=== PATIENT | female | born 1995 | race Caucasian/White ===

== ENCOUNTER 2016-04-26 12:37 | Emergency (ER) | payer SELFPAY ==
[2016-04-26] MEDS: 0.9 % SODIUM CHLORIDE 1,000 ML IV ONE (13:15)
[2016-04-26] MEDS: ONDANSETRON HCL/PF 4 MG/ 2ML VIAL IVP ONE (13:17)
[2016-04-26 13:26] LABS: BASOPHILS % 0.2 (0.0-1.5); EOSINOPHILS % 0.4 % (0.0-6.8); LYMPHOCYTES # 1.8 # k/uL (0.6-4.0); MEAN CORPUSCULAR HEMOGLOBIN 29.5 pg (28.0-34.0); MONOCYTES # 0.4 # k/uL (0.0-0.9); MONOCYTES % 4.1 % (0.0-11.0); NEUTROPHILS # 8.1 # k/uL (1.4-7.7)
--- NOTE | 2016-04-26 13:39 | ED Physician Documentation ---
Nausea/Vomiting/Diarrhea - HISTORIAN Historian: patient - HPI Stated Complaint: N/V Chief Complaint: Nausea,Vomiting,Diarrhea Onset: days ago (Sunday) Duration: waxing, waning Last known Well Code/Unknown Code: Unknown Further Comments: yes (21 year old female patient presents with complaints of nausea and headache. Patient states she woke up Sunday with a hangover after drinking vodka on Sunday night. Patient states she has had nausea off and on since Sunday, states she has vomited each day. Denies diarrhea or fever. Concerned she may be .) - Associated Symptoms Vomiting: frequent Abdominal Pain: LLQ - ROS CONST: none CVS/RESP: denies: chest pain, shortness of breath, cough, dry cough, non- productive cough, productive cough, bloody cough, other GI/: none EYES/ENT: none MS/SKIN/LYMPH: denies: joint pain, leg swelling, rash, swollen glands, ankle swelling, other NEURO/PSYCH: none - PAST HX Past History: other (Rheumatic fever at age 9, viral meningitis. ) Surgeries/Procedures: none Allergies/Adverse Reactions: Allergies Allergy/AdvReac Type Severity Reaction Status Date / Time No Known Allergies Allergy Verified 04/26/16 12:55 Home Medications: Ambulatory Orders Medication Instructions Recorded Promethazine HCl [Phenergan] 12.5 mg PO Q6H PRN #30 tablet 04/26/16 - SOCIAL HX Smoking History: cigarettes - FAMILY HX Family History: none - VITAL SIGNS Vital Signs: Vital Signs Temp Pulse Resp BP Pulse Ox 99.3 F 91 H 16 115/64 99 04/26/16 12:47 04/26/16 14:55 04/26/16 14:55 04/26/16 14:55 04/26/16 14:55 - REVIEWED ASSESSMENTS Nursing Assessment Reviewed: Yes Vitals Reviewed: Yes ED Results Lab/Radiology - Lab Results Lab Results: Lab Results 04/26/16 04/26/16 13:20 13:20 WBC 10.40 K/ul K/ul (4.00-12.00) RBC 4.81 M/ul M/ul (3.90-5.20) Hgb 14.2 g/dL g/dL (12.0-16.0) Hct 41.5 % % (34.5-46.5) MCV 86.4 fl fl (80.0-100.0) MCH 29.5 pg pg (28.0-34.0) MCHC 34.2 g/dL g/dL (30.0-36.0) RDW 13.2 % % (11.3-14.3) Plt Count 219 K/mm3 K/mm3 (130-400) Neut % (Auto) 77.5 % % (39.0-79.0) Lymph % (Auto) 17.2 % % (16.0-50.0) [place] % (Auto) 4.1 % % (0.0-11.0) Eos % (Auto) 0.4 % % (0.0-6.8) Baso % (Auto) 0.2 (0.0-1.5) Neut # 8.1 # k/uL H # k/uL (1.4-7.7) Lymph # 1.8 # k/uL # k/uL (0.6-4.0) [place] # 0.4 # k/uL # k/uL (0.0-0.9) Eos # 0.0 # k/uL # k/uL (0.0-0.6) Baso # 0.0 # k/uL # k/uL (0.0-0.5) Reactive Lymphs % 0.6 % % (0.0-5.0) Reactive Lymphs # 0.1 # k/uL # k/uL (0.0-0.8) Sodium 143 mmol/L mmol/L (136-145) Potassium 3.1 mmol/L L mmol/L (3.5-5.0) Chloride 98 mmol/L mmol/L (98-110) Carbon Dioxide 29 mmol/L mmol/L (20-32) BUN 12 mg/dL mg/dL (10-26) Creatinine 0.9 mg/dL mg/dL (0.4-1.5) Estimated Creat Clear 198 Est GFR ( Amer) > 60 (60 - ) Est GFR (Non-Af Amer) > 60 (60 - ) Glucose 98 mg/dL mg/dL (70-99) Calcium 10.2 mg/dL mg/dL (8.5-10.5) Total Bilirubin 2.2 mg/dL H mg/dL (0.2-1.2) AST 27 U/L U/L (0-41) ALT 33 U/L U/L (0-45) Alkaline Phosphatase 71 U/L U/L (46-116) Total Protein 8.4 g/dL g/dL (6.0-8.5) Albumin 4.8 g/dL g/dL (3.0-5.5) - Orders Orders: ED Orders Category Date Time Status Place Saline Lock/IV NOW Care 04/26/16 12:51 Active CBC/PLATELET/DIFF Stat Lab 04/26/16 13:20 Completed CMP Stat Lab 04/26/16 13:20 Completed UA W/MICRO IF INDICATED Stat Lab 04/26/16 12:51 Ordered URINE HCG Stat Lab 04/26/16 Ordered 0.9 % Sodium Chloride [Normal Saline] 1,000 ml Med 04/26/16 12:51 Discontinued IV NOW Ondansetron HCl/Pf [Zofran 4 mg/2 ml] Med 04/26/16 12:52 Discontinued 4 mg IVP NOW ONE Potassium Chloride [Klor-Con M20] Med 04/26/16 14:05 Discontinued 20 meq PO NOW ONE Nausea Physical Exam - EXAM General Appearance: mild distress EENT: eye inspection normal, ENT inspection normal, pharynx normal, no signs of dehydration, KAYLEIGH, no nystagmus, TM's nml Respiratory: no resp distress, chest non-tender, breath sounds normal CVS: reg rate & rhythm, heart sounds normal, equal pulses, no murmur, no gallop , PMI nml, no JVD, no friction rub, 24 Abdomen: no organomegaly, tenderness (mild with palpation) Skin: normal color, warm/dry, NR, INT, PAL, DR Extremities: non-tender, normal range of motion, no evidence of injury, no edema , J, [employer]IDE [employer] Neuro/Psych: oriented X3, CN's nml as tested, motor nml, sensation nml, mood/ affect nml Discharge Clincal Impression: Nausea & vomiting Qualifiers: Vomiting type: unspecified Vomiting Intractability: intractable Qualified Code( s): R11.2 - Nausea with vomiting, unspecified Prescriptions: Promethazine HCl [Phenergan] 12.5 mg PO Q6H PRN #30 tablet PRN Reason: Nausea / Vomiting Referrals: Parvin Conway MD [Primary Care Provider] - 2 Days Home Medications: Ambulatory Orders Promethazine HCl [Phenergan] 12.5 mg PO Q6H PRN #30 tablet 04/26/16 Condition: Good Disposition: 01 HOME, SELF-CARE Decision to Admit: NO Decision Time: 14:40
[2016-04-26 13:45] LABS: eGFR (African) > 60; eGFR (Non-African) > 60
[2016-04-26] MEDS: POTASSIUM CHLORIDE 20 MEQ TABLET.ER PO ONE (14:20)
[2016-04-26 15:13] VITALS: BP 115/64
== END 2016-04-26 14:44 | disposition home or self-care (01) ==
LOC: ED 12:37
DX: R11.2 Nausea with vomiting, unspecified (principal)
CPT/HCPCS: 80053; 85025; A9270; J2405; J7030; 81025; 96374; 99282; 99283; S1016

== ENCOUNTER 2016-04-27 09:04 | Emergency (ER) | payer SELFPAY ==
[2016-04-27 09:42] VITALS: BP 125/79
[2016-04-27 10:06] LABS: BASOPHILS % 0.2 (0.0-1.5); EOSINOPHILS % 0.6 % (0.0-6.8); LYMPHOCYTES # 1.5 # k/uL (0.6-4.0); MEAN CORPUSCULAR HEMOGLOBIN 30.3 pg (28.0-34.0); MONOCYTES # 0.4 # k/uL (0.0-0.9); MONOCYTES % 4.7 % (0.0-11.0); NEUTROPHILS # 6.7 # k/uL (1.4-7.7)
[2016-04-27 10:20] LABS: AMORPHOUS SEDIMENT,UR MODERATE (NEGATIVE); APPEARANCE,URINE Clear (CLEAR); COLOR,URINE Yellow (YELLOW); OCCULT BLOOD,URINE 3+ (NEGATIVE)
[2016-04-27 10:22] LABS: eGFR (African) > 60; eGFR (Non-African) > 60
--- NOTE | 2016-04-27 11:58 | ED Physician Documentation ---
Abdominal Pain - HISTORIAN Historian: patient, parent - HPI Stated Complaint: L sided abdominal pain Chief Complaint: Abdominal Pain Additonal Information: luq abd pain rad around to back Onset: days ago (5-6) Duration: constant, waxing, waning, persistent Timing: worse Context: denies: out of country travel, bad food, recent trauma Severity: moderate Quality: pain, cramping Associated Symptoms: nausea. denies: vomiting, diarrhea, bloody stools, loss of appetite Exacerbated by: movements Further Comments: yes (some supra pubic pain-dark urine) - ROS CONST: no problems GI/: dark urine. denies: problems urinating CVS/RESP: none EYES/ENT: none MS/SKIN/LYMPH: none NEURO/PSYCH: none - SOCIAL HX Smoking History: other (rheumatic fever as child viral meningitis) Alcohol Use: none Drug Use: none - FAMILY HX Family History: no significant history - PAST HX Past History: other (rh fever as child viral meningitis) Ischemic Bowel Risk Factors: none Other History: none Surgeries/Procedures: none Immunizations: UTD Home Medications: Ambulatory Orders Medication Instructions Recorded Promethazine HCl [Phenergan] 12.5 mg PO Q6H PRN #30 tablet 04/26/16 Ciprofloxacin HCl [Cipro] 500 mg PO BID #14 tablet 04/27/16 Allergies/Adverse Reactions: Allergies Allergy/AdvReac Type Severity Reaction Status Date / Time No Known Allergies Allergy Verified 04/26/16 12:55 - VITAL SIGNS Vital Signs: Vital Signs Temp Pulse Resp BP Pulse Ox 98.1 F 92 H 16 125/79 99 04/27/16 09:12 04/27/16 09:12 04/27/16 09:12 04/27/16 09:12 04/27/16 09:12 - REVIEWED ASSESSMENTS Nursing Assessment Reviewed: Yes Vitals Reviewed: Yes ED Results Lab/Radiology - Lab Results Lab Results: Lab Results 04/27/16 04/27/16 04/27/16 09:50 09:50 09:50 WBC RBC Hgb Hct MCV MCH MCHC RDW Plt Count Neut % (Auto) Lymph % (Auto) [place] % (Auto) Eos % (Auto) Baso % (Auto) Neut # Lymph # [place] # Eos # Baso # Reactive Lymphs % Reactive Lymphs # Sodium 137 mmol/L mmol/L (136-145) Potassium 3.5 mmol/L mmol/L (3.5-5.0) Chloride 101 mmol/L mmol/L (98-110) Carbon Dioxide 30 mmol/L mmol/L (20-32) BUN 10 mg/dL mg/dL (10-26) Creatinine 0.9 mg/dL mg/dL (0.4-1.5) Estimated Creat Clear 194 Est GFR ( Amer) > 60 (60 - ) Est GFR (Non-Af Amer) > 60 (60 - ) Glucose 101 mg/dL H mg/dL (70-99) Calcium 9.9 mg/dL mg/dL (8.5-10.5) Total Bilirubin 3.0 mg/dL H mg/dL (0.2-1.2) AST 28 U/L U/L (0-41) ALT 34 U/L U/L (0-45) Alkaline Phosphatase 67 U/L U/L (46-116) Total Protein 8.1 g/dL g/dL (6.0-8.5) Albumin 4.6 g/dL g/dL (3.0-5.5) Amylase 20 U/L U/L (20-104) Serum HCG, Qual Negative (NEGATIVE) Urine Color Yellow (YELLOW) Urine Appearance Clear (CLEAR) Urine pH 6.0 (5.0 - 8.0) Ur Specific [place] >=1.030 H (1.010-1.030) Urine Protein 1+ mg/dL H mg/dL (NEGATIVE) Urine Ketones 2+ mg/dL H mg/dL (NEGATIVE) Urine Occult Blood 3+ H (NEGATIVE) Urine Nitrite Positive (NEGATIVE) Urine Bilirubin Negative (NEGATIVE) Urine Urobilinogen 1.0 Eu Eu (0.2-1.0) Ur Leukocyte Esterase 1+ H (NEGATIVE) Urine RBC 2-5 H (0-2 HPF) Urine WBC 5-10 H (0-5 HPF) Ur Squamous Epith Cells Moderate H (NEG-FEW) Amorphous Sediment Moderate H (NEGATIVE) Urine Bacteria Many H (NEGATIVE) Urine Glucose Negative mg/dL mg/dL (NEGATIVE) 04/27/16 09:50 WBC 8.80 K/ul K/ul (4.00-12.00) RBC 4.65 M/ul M/ul (3.90-5.20) Hgb 14.1 g/dL g/dL (12.0-16.0) Hct 40.9 % % (34.5-46.5) MCV 88.0 fl fl (80.0-100.0) MCH 30.3 pg pg (28.0-34.0) MCHC 34.4 g/dL g/dL (30.0-36.0) RDW 13.1 % % (11.3-14.3) Plt Count 205 K/mm3 K/mm3 (130-400) Neut % (Auto) 76.3 % % (39.0-79.0) Lymph % (Auto) 17.3 % % (16.0-50.0) [place] % (Auto) 4.7 % % (0.0-11.0) Eos % (Auto) 0.6 % % (0.0-6.8) Baso % (Auto) 0.2 (0.0-1.5) Neut # 6.7 # k/uL # k/uL (1.4-7.7) Lymph # 1.5 # k/uL # k/uL (0.6-4.0) [place] # 0.4 # k/uL # k/uL (0.0-0.9) Eos # 0.1 # k/uL # k/uL (0.0-0.6) Baso # 0.0 # k/uL # k/uL (0.0-0.5) Reactive Lymphs % 0.8 % % (0.0-5.0) Reactive Lymphs # 0.1 # k/uL # k/uL (0.0-0.8) Sodium Potassium Chloride Carbon Dioxide BUN Creatinine Estimated Creat Clear Est GFR ( Amer) Est GFR (Non-Af Amer) Glucose Calcium Total Bilirubin AST ALT Alkaline Phosphatase Total Protein Albumin Amylase Serum HCG, Qual Urine Color Urine Appearance Urine pH Ur Specific [place] Urine Protein Urine Ketones Urine Occult Blood Urine Nitrite Urine Bilirubin Urine Urobilinogen Ur Leukocyte Esterase Urine RBC Urine WBC Ur Squamous Epith Cells Amorphous Sediment Urine Bacteria Urine Glucose - Orders Orders: ED Orders Category Date Time Status ABD SERIES PA CHEST [RAD] Stat Exams 04/27/16 Taken AMYLASE Routine Lab 04/27/16 09:50 Completed CBC/PLATELET/DIFF Routine Lab 04/27/16 09:50 Completed CMP Routine Lab 04/27/16 09:50 Completed SERUM HCG Routine Lab 04/27/16 09:50 Completed URINALYSIS Routine Lab 04/27/16 09:50 Completed URINE CULTURE Routine Lab 04/27/16 09:50 Received Abdominal Pain Physical Exam - Physical Exam General Appearance: mild distress EENT: eye inspection normal NECK: normal inspection, thyroid normal RESPIRATORY: no resp distress, chest non-tender, breath sounds normal CVS: reg rate & rhythm, heart sounds normal ABDOMEN: soft, tenderness (luq and w/ sig pos renal lpunch test lt-mild supra pubic tenderness) BACK: normal inspection SKIN: warm/dry, normal color. No: cyanosis, diaphoresis, jaundice EXTREMITIES: non-tender, normal range of motion NEURO: oriented X3, CN's nml as tested, motor nml, sensation nml, mood/affect nml Vital Signs: Vital Signs Temp Pulse Resp BP Pulse Ox 98.1 F 92 H 16 125/79 99 04/27/16 09:12 04/27/16 09:12 04/27/16 09:12 04/27/16 09:12 04/27/16 09:12 Discharge Clincal Impression: Acute pyelonephritis Prescriptions: Ciprofloxacin HCl [Cipro] 500 mg PO BID #14 tablet Home Medications: Ambulatory Orders Promethazine HCl [Phenergan] 12.5 mg PO Q6H PRN #30 tablet 04/26/16 Ciprofloxacin HCl [Cipro] 500 mg PO BID #14 tablet 04/27/16 Condition: Good Disposition: 01 HOME, SELF-CARE Decision to Admit: NO Decision Time: 12:03
--- NOTE | 2016-04-27 12:59 | Diagnostic Imaging Report ---
[facility] [address] [facility].[address] [address] Report Submission Date: Apr 27, 2016 10:49:06 AM LAMINATION BUILDER Patient Study Name: ENDY ALLAN Date: Apr 27, 2016 10:13:14 AM LAMINATION BUILDER Modality Type: CR Gender: F Description: ABDOMEN : 89 Institution: [facility] Physician [facility] - ER Abdominal series with 1 view chest The exam: April 27, 2016. Clinical history: Left-sided abdominal pain and nausea. Findings: No comparison studies are provided. The cardiac and mediastinal silhouettes are normal. The lungs are clear. The visualized bowel gas pattern is unremarkable. There is no evidence of free air. Minimal gas is noted in the ascending colon. No abnormal abdominal calcifications identified. Film artifacts are present. The osseous structures are normal for age. Impression: No acute cardiopulmonary abnormality. Unremarkable abdominal bowel gas pattern. Electronically signed on Apr 27, 2016 10:49:06 AM LAMINATION BUILDER by: Roberta RIVERA
== END 2016-04-27 09:22 | disposition home or self-care (01) ==
LOC: ED 09:04
DX: N12 Tubulo-interstitial nephritis, not specified as acute or chronic (principal)
CPT/HCPCS: 36415; 74022; 80053; 81002; 82150; 84703; 85025; 87086; 87186; 99282; 99283

== ENCOUNTER 2016-05-06 14:15 | Emergency (ER) | payer OTHER ==
--- NOTE | 2016-05-06 14:27 | ED Physician Documentation ---
General Adult - HISTORIAN Historian: patient, parent - HPI Stated Complaint: Avulsion to Right Index Finger Chief Complaint: General Adult Further Comments: yes (21 year old female patient presents with cut to right index finger from scissors. States she was cutting hair and cut her finger.) - ROS CONST: no problems EYES/ENT: none CVS/RESP: none GI/: none MS/SKIN/LYMPH: none NEURO/PSYCH: denies: headache - PAST HX Past History: other (Rheumatic fever at age 9, viral meningitis) Surgeries/Procedures: none Allergies/Adverse Reactions: Allergies Allergy/AdvReac Type Severity Reaction Status Date / Time No Known Allergies Allergy Verified 05/06/16 14:26 Home Medications: Ambulatory Orders Medication Instructions Recorded Promethazine HCl [Phenergan] 12.5 mg PO Q6H PRN #30 tablet 04/26/16 Ciprofloxacin HCl [Cipro] 500 mg PO BID #14 tablet 04/27/16 - SOCIAL HX Smoking History: cigarettes Alcohol Use: heavy - FAMILY HX Family History: No - VITAL SIGNS Vital Signs: Vital Signs Temp Pulse Resp BP Pulse Ox 98 F 82 18 129/81 99 05/06/16 14:15 05/06/16 14:15 05/06/16 14:15 05/06/16 14:15 05/06/16 14:15 - REVIEWED ASSESSMENTS Nursing Assessment Reviewed: Yes Vitals Reviewed: Yes Progress - Progress Progress: wound cleaned by RN, silver nitrate to area of bleeding. Pressure held, homeostasis achieved. General Adult Physical Exam - PHYSICAL EXAM GENERAL APPEARANCE: mild distress EENT: [place]IGH SKIN: warm/dry, normal color, other (.5 cm avulsion laceration to distal right index finger pad. ) EXTREMITIES: normal range of motion, no edema NEURO: oriented X3, CN's nml as tested, motor nml, sensation nml, mood/affect nml Discharge Clincal Impression: Avulsion, skin Referrals: Parvin Conway MD [Primary Care Provider] - 2 Days Additional Instructions: If your finger starts to bleed again, hold firm pressure for 10-15 minutes. Do not pick off the scab. Keep the wound covered until it heals. Do not get your dressing wet or soak your finger in water today. Home Medications: Ambulatory Orders Promethazine HCl [Phenergan] 12.5 mg PO Q6H PRN #30 tablet 04/26/16 Ciprofloxacin HCl [Cipro] 500 mg PO BID #14 tablet 04/27/16 Condition: Stable Disposition: 01 HOME, SELF-CARE Decision to Admit: NO Decision Time: 14:27
[2016-05-06 14:38] VITALS: BP 120/68
== END 2016-05-06 14:36 | disposition home or self-care (01) ==
LOC: ED 14:15
DX: S61.200A Unspecified open wound of right index finger without damage to nail, initial encounter (principal); W27.2XXA Contact with scissors, initial encounter; Y93.9 Activity, unspecified; Y99.9 Unspecified external cause status
CPT/HCPCS: 99283

== ENCOUNTER 2017-06-04 20:21 | Emergency (ER) | payer SELFPAY ==
[2017-06-04 20:34] VITALS: BP 134/80
--- NOTE | 2017-06-04 21:05 | ED Physician Documentation ---
Fall - HISTORIAN Historian: patient - HPI Stated Complaint: right ankle pain Chief Complaint: Fall Onset: other (Sunday) Where: home Context: tripped r: moderate Associated Symptoms:: no loss of consciousness Location of Pain/Injury: lower extremity (right ankle) Injury to Right Extremity: ankle Injury to Left Extremity: none - ROS CONST: no problems MS/SKIN/LYMPH: ankle swelling EYES/ENT: none CVS/RESP: none GI/: denies: nausea, vomiting - PAST HX Past History: none Allergies/Adverse Reactions: Allergies Allergy/AdvReac Type Severity Reaction Status Date / Time No Known Allergies Allergy Verified 06/04/17 20:34 Home Medications: Ambulatory Orders Medication Instructions Recorded NK [NK] 06/04/17 - SOCIAL HX Smoking History: non-smoker - FAMILY HX Family History: none - VITAL SIGNS Vital Signs: Vital Signs Temp Pulse Resp BP Pulse Ox 98.2 F 82 18 134/80 96 06/04/17 20:31 06/04/17 20:31 06/04/17 20:31 06/04/17 20:31 06/04/17 20:31 - REVIEWED ASSESSMENTS Nursing Assessment Reviewed: Yes Vitals Reviewed: Yes ED Results Lab/Radiology - Radiology Radiology Impressions: Date of Exam: June 04, 2017. History: RT LATERAL ANKLE PAIN, FALL AND TWISTED ANKLE ON 06/01/2017 (Hx) Findings: Lateral malleolar soft tissue swelling is present. There is no evidence of acute fracture or dislocation. The tibiotalar alignment is maintained. The bones of the hindfoot are intact. Impression: Soft tissue swelling without evidence of acute fracture or dislocation. Electronically signed on Jun 04, 2017 9:05:22 PM CDT by: Roberta Roblero - Orders Orders: ED Orders Category Date Time Status RIGHT ANKLE [ANKLE 3 VIEWS OR MORE] [RAD] Stat Exams 06/04/17 Ordered Fall Physical Exam - Physical Exam General Appearance: mild distress Eye: [place] Resp/CVS: no resp. distress, other (RRR) Neuro: oriented x3, sensation nml, motor nml, mood/affect nml Back: normal inspection, no CVA tenderness Extremities: atraumatic, pelvis stable, hips non-tender, nml ROM, nml color/temp , other (right ankle with 1+ edema; patient able to walk on right ankle with no limp or grimace) Discharge Clincal Impression: Ankle sprain Qualifiers: Encounter type: initial encounter Involved ligament of ankle: unspecified ligament Laterality: right Qualified Code(s): S93.401A - Sprain of unspecified ligament of right ankle, initial encounter Referrals: Parvin Conway MD [Primary Care Provider] - 2 Days Additional Instructions: Ice Rest Elevation If you are unable to bear weight and continuing to have significant pain on day 3-4; see your PCP for re-evaluation and additional xrays. You may use Tylenol every 4hour as needed for pain. Limit your dose to less than 4 G per day. Alternate with Ibuprofen 600-800mg three times a day with food as needed. Do not take for more than 5 days in a row. Condition: Stable Disposition: 01 HOME, SELF-CARE Decision to Admit: NO Decision Time: 21:06
--- NOTE | 2017-06-05 06:28 | Diagnostic Imaging Report ---
TAISHA MANN (DIRECT SALES PROFESSIONAL) - ER [facility] [address] [facility].[address] [address] Report Submission Date: Jun 04, 2017 9:05:22 PM CDT Patient Study Name: ENDY ALLAN Date: Jun 04, 2017 8:37:58 PM CDT Modality Type: DX Gender: F Description: LOWER EXTREMITY : 89 Institution: [facility] Physician: TAISHA MANN (JANEL) - ER Right ankle 3 views Date of Exam: June 04, 2017. History: RT LATERAL ANKLE PAIN, FALL AND TWISTED ANKLE ON 06/01/2017 (Hx) Findings: Lateral malleolar soft tissue swelling is present. There is no evidence of acute fracture or dislocation. The tibiotalar alignment is maintained. The bones of the hindfoot are intact. Impression: Soft tissue swelling without evidence of acute fracture or dislocation. Electronically signed on Jun 04, 2017 9:05:22 PM CDT by: Roberta RIVERA
== END 2017-06-04 21:11 | disposition home or self-care (01) ==
LOC: ED 20:21
DX: S93.401A Sprain of unspecified ligament of right ankle, initial encounter (principal); W18.40XA Slipping, tripping and stumbling without falling, unspecified, initial encounter; Y93.9 Activity, unspecified; Y92.9 Unspecified place or not applicable; Y99.9 Unspecified external cause status
CPT/HCPCS: 73610; 99282